=== PATIENT | female | born 1980 | race Caucasian/White ===

== ENCOUNTER 2022-10-19 12:54 | Emergency (ER) | payer SELFPAY ==
[2022-10-19 13:48] LABS: ESTIMATED GFR 111 mL/min (>60)
[2022-10-19] MEDS: Iopamidol 755 Mg/ML 75 ML Bottle IV ONE (15:08)
== END 2022-10-19 15:52 | disposition home or self-care (01) ==
LOC: FB.ED 12:54
DX: R10.13 Epigastric pain (principal)
CPT/HCPCS: 36415; 74177; 80053; 82272; 83690; 85025; 85379; 86140; 99284; Q9967